=== PATIENT | female | born 1925 | race Caucasian/White ===

== ENCOUNTER 2017-07-31 03:51 | Emergency (ER) | payer MEDICARE ==
--- NOTE | 2017-07-31 04:28 | ED Physician Chart ---
ED Chief Complaint/HPI - Patient Information Date Seen:: 07/31/17 Time Seen:: 04:28 Chief Complaint:: Head trauma History of Present Illness:: 89 yo female was recently d/c from hospital on 07/21/17 for COPD. Patient had an un-witnessed fall today with subsequent headache. Patient was brought by ambulance to ER for further evaluation. At ER, the patient was noticed to have cough and congested lungs. Allergies:: Allergies Allergy/AdvReac Type Severity Reaction Status Date / Time No Known Allergies Allergy Verified 07/31/17 04:07 Vitals:: Vital Signs - 8 hr 07/31/17 03:55 Temp 97.0 F HR 101 RR 18 BP 144/63 O2 Sat % 91 ED Review of Systems - Review of Systems General/Constitutional: No fever Skin: No rash Head: Headache Eyes: No pain ENT: No earache Neck: No neck pain Cardio Vascular: No chest pain Pulmonary: SOB, Cough GI: No nausea, Vomiting ED Past Medical History - Past Medical History Past Medical History: HTN, Asthma/COPD, Dyslipidemia, Other (Chronic back pain) Social History: Non Smoker, No Alcohol, No Drug Use Surgical History: Hernia Family Medical History - Family Member Mother History Unknown: Yes Ethnicity: Non- Living Status: ED Physical Exam - Physical Examination General/Constitutional: Awake Eyes: PERRL Skin: No skin lesions ENMT: Nasal exam nl Neck: No nuchal rigidity Other Respiratory comments:: Rhonchi, wheeze Cardio Vascular: RRR, No murmur, gallop, rubs, NL S1 S2 GI: No tenderness/rebounding/guarding Extremities: normal strength in all extremities Neuro/Psych: No focal deficits ED Labs/Radiology/EKG Results - Radiology Results Results: CT head: no acute abnormalities CXR: increased lung markings ED Assessment - Assessment General Assessment: Head contusion Bronchitis Hypokalemia Hyponatremia Assessment/Comments:: CT head CXR CBC, CMP DuoNeb KCL PO Levaquin IV NS 1L IV bolus D/c home Levaquin PO F/u PCP or return to ER if symptoms worsen ED Septic Shock - . Is Septic Shock (SBP<90, OR Lactate>4 mmol\L) present?: No - <6hrs of presentation: Vital Signs: Vital Signs - 8 hr 07/31/17 03:55 Temp 97.0 F HR 101 RR 18 BP 144/63 O2 Sat % 91 ED Reassessment (Disposition) - Reassessment Reassessment Condition:: Improved - Patient Disposition Discharge/Transfer:: Home ED Discharge Plan - Patient Disposition Admit/Discharge/Transfer: PT DISCHARGED HOME Condition at Disposition: Stable Prescriptions: Levofloxacin [Levaquin] 500 mg PO DAILY #7 tab Instructions: Head Injury, Adult, Bronchitis, [id number]
[2017-07-31 04:53] LABS: % BASOPHILS 0.7 % (0.0-2.0); % EOSINOPHILS 0.2 % (0.0-5.0); % LYMPHOCYTES 11.9 % (20.0-50.0); % MONOCYTES 4.3 % (2.0-10.0); % NEUTROPHILS 82.9 % (40.0-80.0); BASOPHILE ABSOLUTE 0.1 Th/cumm (0-0.2); HEMATOCRIT 38.4 % (41.0-60); HEMOGLOBIN 12.5 gm/dL (12-16); LYMPHOCYTE ABSOLUTE 1.3 Th/cmm (1.5-3.0); MEAN CELL VOLUME 81.7 fl (81-100); MEAN CORPUSCULAR HEMOGLOBIN 26.6 pg (27.0-31.0); MEAN CORPUSCULAR HGB CONC 32.5 pg (28.0-36.0); MEAN PLATELET VOLUME 7.1 fl; MONOCYTE ABSOLUTE 0.5 Th/cmm (0.3-1.0); NEUTROPHILE ABSOLUTE 8.9 Th/cmm (1.8-8.0); PLATELET COUNT 586 Th/cmm (150-400); RED CELL DISTRIBUTION WIDTH 14.8 % (11.5-20.0); WHITE BLOOD COUNT 10.8 Th/cmm (4.8-10.8)
[2017-07-31 05:09] LABS: INR 1.02 (0.5-1.4); PROTHROMBIN TIME (TEST) 10.6 SECONDS (9.5-11.5)
[2017-07-31 05:16] LABS: ALB/GLOB RATIO 1.1 (1.0-1.8); ALBUMIN 3.4 gm/dL (3.7-5.3); ALKALINE PHOSPHATASE 82 U/L (34-104); ANION GAP 10.6 (7.0-16.0); BILIRUBIN,TOTAL 0.5 mg/dL (0.3-1.0); BUN - UREA NITROGEN 13 mg/dL (7-25); CALCIUM SERUM 10.7 mg/dL (8.6-10.3); CARBON DIOXIDE 25.1 mEq/L (21.0-31.0); CHLORIDE 102 mEq/L (98-107); CREATININE - SERUM 0.9 mg/dL (0.6-1.2); GLUCOSE 126 mg/dL (70-105); SGOT 14 U/L (13-39); SGPT/ALT 14 U/L (7-52); SODIUM SERUM 135 mEq/L (136-145); TOTAL PROTEIN,SERUM 6.5 gm/dL (6.0-8.3)
[2017-07-31 05:22] LABS: POTASSIUM SERUM 2.7 mEq/L (3.5-5.1)
[2017-07-31] MEDS ORDERED: Potassium Chloride 20 mEq ER Tab PO ONE (05:24)
[2017-07-31] MEDS ORDERED: Potassium Chloride Elixir 20 mEq /15 mL UDC ONE (05:34)
[2017-07-31] MEDS ORDERED: Potassium Chloride Elixir 20 mEq /15 mL UDC PO ONE (05:41)
[2017-07-31] MEDS ORDERED: Albuterol/Ipratropium Neb 3 ML AERS HHN ONE ×2 (06:46→06:58)
[2017-07-31] MEDS ORDERED: Levofloxacin 500mg/100mL 500 MG/100 ML BAG IV ONE ×2 (06:48→06:51)
[2017-07-31] MEDS ORDERED: Sodium Chloride 0.9% 500 ML IV ONE (06:58)
--- NOTE | 2017-07-31 09:12 | Diagnostic Imaging Report ---
CT scan of the brain without intravenous contrast HISTORY: Headache, trauma Total DLP equals 557 CTDI equals 27.7 Axial sections were obtained from the base of the skull to the vertex. There is prominence/enlargement of the ventricular system size. Associated enlargement of cerebral sulci and subarachnoid cisterns. Findings are consistent with changes of generalized cerebral atrophy. No acute parenchymal abnormalities. No acute cerebral hemorrhage. Hypodensity is seen within the supratentorial white matter regions without mass effect. The findings may be associated with chronic small vessel ischemic disease. No extra-axial masses or abnormal fluid collections. IMPRESSION: 1. No acute abnormalities 2. Cerebral atrophy 3. Supratentorial white matter changes that may reflect chronic small vessel ischemic disease
--- NOTE | 2017-07-31 09:13 | Diagnostic Imaging Report ---
Portable chest x-ray HISTORY: Cough The heart is enlarged. Atherosclerotic calcination seen in the tortuous thoracic aorta. There is generalized accentuation of the interstitial lung markings most pronounced within the lower lobes findings may be chronic. Superimposed pneumonia cannot be excluded. Clinical correlation needed. Surgical clips noted about the gastroesophageal junction area. IMPRESSION: 1. Cardiomegaly with atherosclerotic vascular change 2. Generalized accentuation of the interstitial lung markings most pronounced within the lower lobes. The overall appearance suggests chronic change. However, superimposed pneumonia cannot be excluded. Clinical correlation is needed.
== END 2017-07-31 08:45 | disposition home or self-care (01) ==
LOC: ER 03:51
DX: S00.93XA Contusion of unspecified part of head, initial encounter (principal); J45.909 Unspecified asthma, uncomplicated; J44.9 Chronic obstructive pulmonary disease, unspecified; E78.5 Hyperlipidemia, unspecified; I10 Essential (primary) hypertension; X58.XXXA Exposure to other specified factors, initial encounter; Y93.89 Activity, other specified; Y92.89 Other specified places as the place of occurrence of the external cause; Y99.8 Other external cause status; R51 Headache
CPT/HCPCS: 99285; 70450; 71010; 94640; 36415; 85025; 85610; 80053; J1956 ×2; J7040